=== PATIENT | female | born 1995 | race Caucasian/White ===

== ENCOUNTER 2020-05-05 15:59 | Inpatient (IN) | payer MEDICAID ==
[~2020-05-05] VITALS: Ht 160 cm; Wt 56.0 kg
[~2020-05-05 15:59] MED LIST: DOCU-131 PO; IBUP-1222 PO; PREN1TAB60 PO
[2020-05-05] MEDS ORDERED: BETAMETHASONE 6 MG/ML, 5ML IM ONE (16:33)
[2020-05-05] MEDS ORDERED: MAGNESIUM SULF. PMX 20GM/500ML 500 ML IV ONE (16:33)
[2020-05-05] MEDS: LACTATED RINGERS 1,000 ML IV PRN (16:40)
[2020-05-05] MEDS: BETAMETHASONE 6 MG/ML, 5ML IM SCH (16:44)
[2020-05-05] MEDS: AMPICILLIN 2 GM in SODIUM CHLORIDE 0.9% 100 ML IV SCH ×2 (16:50→22:52)
[2020-05-05] MEDS ORDERED: LACTATED RINGERS 1,000 ML IV PRN (17:00)
[2020-05-05] MEDS: MAGNESIUM SULF. PMX 20GM/500ML 500 ML IV SCH ×2 (17:08→17:26)
[2020-05-05 17:11] LABS: BASOPHILS % (AUTO) 0 % (0-1); EOSINOPHILS % (AUTO) 1 % (1-7); LYMPHOCYTES % (AUTO) 21 % (22-44); MEAN CORPUSCULAR HEMOGLOBIN 32.3 pg (27.0-34.8); MEAN CORPUSCULAR HGB CONC 34.5 g/dL (32.4-35.8); MEAN PLATELET VOLUME 9.3 fL (7.4-10.4); MONOCYTES % (AUTO) 8 % (2-9); NEUTROPHILS % (AUTO) 70 % (42-75); PLATELET COUNT 219 x10^3/uL (130-400); RED BLOOD COUNT 3.86 x10^6/uL (3.82-5.3); RED CELL DISTRIBUTION WIDTH 12.2 % (9.6-15.2)
[2020-05-05 17:16] LABS: MD NO
[2020-05-05 17:22] LABS: ALANINE AMINOTRANSFERASE 18 U/L (12-78); ALBUMIN 2.6 g/dL (3.4-5.0); ANION GAP 8 mmol/L (5-15); CALCIUM 8.5 mg/dL (8.5-10.1); CHLORIDE 110 mmol/L (98-107); CREATININE 0.66 mg/dL (0.55-1.02)
[2020-05-05 17:24] LABS: ALKALINE PHOSPHATASE 144 U/L (45-117); BILIRUBIN,TOTAL 0.2 mg/dL (0.2-1.0); TOTAL PROTEIN 6.5 g/dL (6.4-8.2)
[2020-05-05] MEDS: AZITHROMYCIN 500 MG in SODIUM CHLORIDE 0.9% 250 ML IV SCH (17:28)
[2020-05-05] MEDS ORDERED: ACETAMINOPHEN 325 MG TABLET PO PRN (17:30)
[2020-05-05] MEDS ORDERED: ONDANSETRON 2MG/ML, 2ML IVPush PRN (17:30)
[2020-05-05 17:33] LABS: MICROSCOPIC NOT IND
[2020-05-05] MEDS ORDERED: NEWBORN KIT ONE (17:35)
[2020-05-05] MEDS ORDERED: MAGNESIUM SULFATE PMX 4GM/100M 100 ML IVPB ONE (18:00)
[2020-05-05 19:00] VITALS: BP 106/65
[2020-05-06] MEDS ORDERED: MAGNESIUM SULF. PMX 20GM/500ML 500 ML IV ONE ×2 (02:03→17:36)
[2020-05-06] MEDS: MAGNESIUM SULF. PMX 20GM/500ML 500 ML IV SCH ×2 (02:04→17:39)
[2020-05-06] MEDS: AMPICILLIN 2 GM in SODIUM CHLORIDE 0.9% 100 ML IV SCH ×4 (05:00→23:00)
[2020-05-06] MEDS ORDERED: PRENATAL VIT/IRON/FA 1 EACH TABLET ONE (10:28)
[2020-05-06] MEDS ORDERED: DOCUSATE 100 MG CAPSULE ONE ×2 (10:28→20:51)
[2020-05-06] MEDS: DOCUSATE 50 MG/5 ML, 10ML UDC PO PRN ×2 (10:30→20:54)
[2020-05-06] MEDS: PRENATAL VIT/IRON/FA 1 EACH TABLET PO SCH (10:30)
[2020-05-06] MEDS: LACTATED RINGERS 1,000 ML IV PRN (13:31)
[2020-05-06 13:33] VITALS: BP 110/56
[2020-05-06] MEDS: BETAMETHASONE 6 MG/ML, 5ML IM SCH (16:36)
[2020-05-06] MEDS ORDERED: DIPH,PERTUSS(ACELL),TET VAC/PF NC IM-VACC ONE (17:00)
[2020-05-06] MEDS: AZITHROMYCIN 500 MG in SODIUM CHLORIDE 0.9% 250 ML IV SCH (17:35)
[2020-05-07] MEDS: LACTATED RINGERS 1,000 ML IV PRN ×2 (01:56→06:38)
[2020-05-07] MEDS: AMPICILLIN 2 GM in SODIUM CHLORIDE 0.9% 100 ML IV SCH ×3 (05:00→16:38)
[2020-05-07] MEDS ORDERED: ACETAMINOPHEN 325 MG TABLET ONE (05:19)
[2020-05-07] MEDS ORDERED: DOCUSATE 100 MG CAPSULE ONE ×2 (07:38→21:46)
[2020-05-07] MEDS ORDERED: PRENATAL VIT/IRON/FA 1 EACH TABLET ONE (07:38)
[2020-05-07] MEDS: PRENATAL VIT/IRON/FA 1 EACH TABLET PO SCH (07:40)
[2020-05-07] MEDS: DOCUSATE 50 MG/5 ML, 10ML UDC PO PRN ×2 (07:43→21:50)
[2020-05-07] MEDS ORDERED: MAGNESIUM SULF. PMX 20GM/500ML 500 ML IV ONE (11:05)
[2020-05-07] MEDS: MAGNESIUM SULF. PMX 20GM/500ML 500 ML IV SCH (11:12)
[2020-05-07] MEDS ORDERED: AMOXICILLIN 250 MG CAPSULE ONE (21:45)
[2020-05-07] MEDS: AMOXICILLIN 250 MG CAPSULE PO SCH (21:50)
[2020-05-08] MEDS ORDERED: AMOXICILLIN 250 MG CAPSULE ONE ×3 (06:48→21:53)
[2020-05-08] MEDS: AMOXICILLIN 250 MG CAPSULE PO SCH ×3 (06:50→21:55)
[2020-05-08 07:19] VITALS: BP 102/57
[2020-05-08] MEDS ORDERED: DOCUSATE 100 MG CAPSULE ONE (08:39)
[2020-05-08] MEDS ORDERED: PRENATAL VIT/IRON/FA 1 EACH TABLET ONE (08:39)
[2020-05-08] MEDS: PRENATAL VIT/IRON/FA 1 EACH TABLET PO SCH (08:40)
[2020-05-08] MEDS: DOCUSATE 50 MG/5 ML, 10ML UDC PO PRN (08:41)
[2020-05-09 02:06] LABS: BASOPHILS % (AUTO) 0 % (0-1); EOSINOPHILS % (AUTO) 1 % (1-7); LYMPHOCYTES % (AUTO) 25 % (22-44); MEAN CORPUSCULAR HEMOGLOBIN 32.5 pg (27.0-34.8); MEAN CORPUSCULAR HGB CONC 34.3 g/dL (32.4-35.8); MEAN PLATELET VOLUME 9.6 fL (7.4-10.4); MONOCYTES % (AUTO) 9 % (2-9); NEUTROPHILS % (AUTO) 65 % (42-75); PLATELET COUNT 180 x10^3/uL (130-400); RED BLOOD COUNT 3.37 x10^6/uL (3.82-5.3); RED CELL DISTRIBUTION WIDTH 12.5 % (9.6-15.2)
[2020-05-09 02:10] LABS: MD NO
[2020-05-09] MEDS ORDERED: AMOXICILLIN 250 MG CAPSULE ONE ×4 (05:53→21:54)
[2020-05-09] MEDS: AMOXICILLIN 250 MG CAPSULE PO SCH ×3 (05:55→21:57)
[2020-05-09] MEDS: SODIUM CHLORIDE FLUSH 10ML SYR IVF PRN ×3 (05:55→21:02)
[2020-05-09] MEDS ORDERED: PRENATAL VIT/IRON/FA 1 EACH TABLET ONE ×2 (10:38→21:01)
[2020-05-09] MEDS: PRENATAL VIT/IRON/FA 1 EACH TABLET PO SCH (10:39)
[2020-05-09 20:00] VITALS: BP 112/71
[2020-05-10] MEDS ORDERED: AMOXICILLIN 250 MG CAPSULE ONE ×3 (05:55→21:53)
[2020-05-10] MEDS: SODIUM CHLORIDE FLUSH 10ML SYR IVF PRN ×3 (05:57→21:55)
[2020-05-10] MEDS: AMOXICILLIN 250 MG CAPSULE PO SCH ×3 (05:57→21:55)
[2020-05-10] MEDS ORDERED: PRENATAL VIT/IRON/FA 1 EACH TABLET ONE ×2 (07:50→19:46)
[2020-05-10] MEDS: PRENATAL VIT/IRON/FA 1 EACH TABLET PO SCH ×2 (09:31→19:48)
[2020-05-10] MEDS ORDERED: DOCUSATE 100 MG CAPSULE ONE (19:46)
[2020-05-10 20:18] VITALS: BP 115/71
[2020-05-11] MEDS: AMOXICILLIN 250 MG CAPSULE PO SCH ×3 (06:00→22:09)
[2020-05-11] MEDS: DOCUSATE 50 MG/5 ML, 10ML UDC PO PRN ×2 (06:06→21:21)
[2020-05-11] MEDS ORDERED: AMOXICILLIN 250 MG CAPSULE ONE ×2 (13:06→20:05)
[2020-05-11] MEDS: SODIUM CHLORIDE FLUSH 10ML SYR IVF PRN (13:56)
[2020-05-11] MEDS ORDERED: PRENATAL VIT/IRON/FA 1 EACH TABLET ONE (20:10)
[2020-05-11] MEDS: PRENATAL VIT/IRON/FA 1 EACH TABLET PO SCH (20:10)
[2020-05-11] MEDS ORDERED: DOCUSATE 100 MG CAPSULE ONE (21:19)
[2020-05-12] MEDS ORDERED: AMOXICILLIN 250 MG CAPSULE ONE ×4 (06:18→22:27)
[2020-05-12] MEDS: AMOXICILLIN 250 MG CAPSULE PO SCH ×2 (06:23→14:18)
[2020-05-12] MEDS ORDERED: DOCUSATE 100 MG CAPSULE ONE ×2 (08:44→21:02)
[2020-05-12] MEDS: SODIUM CHLORIDE FLUSH 10ML SYR IVF PRN (08:48)
[2020-05-12] MEDS: DOCUSATE 50 MG/5 ML, 10ML UDC PO PRN ×2 (08:48→21:03)
[2020-05-12] MEDS ORDERED: PRENATAL VIT/IRON/FA 1 EACH TABLET ONE (19:11)
[2020-05-12 21:00] VITALS: BP 110/64
[2020-05-12] MEDS: PRENATAL VIT/IRON/FA 1 EACH TABLET PO SCH (21:00)
[2020-05-13] MEDS ORDERED: DOCUSATE 100 MG CAPSULE ONE (07:50)
[2020-05-13 08:00] VITALS: BP 112/64
[2020-05-13] MEDS: SODIUM CHLORIDE FLUSH 10ML SYR IVF PRN ×2 (08:01→20:36)
[2020-05-13] MEDS: DOCUSATE 50 MG/5 ML, 10ML UDC PO PRN (08:01)
[2020-05-13 17:21] VITALS: BP 118/62
[2020-05-13] MEDS ORDERED: PRENATAL VIT/IRON/FA 1 EACH TABLET ONE (20:34)
[2020-05-13] MEDS: PRENATAL VIT/IRON/FA 1 EACH TABLET PO SCH (20:36)
[2020-05-15] MEDS ORDERED: DOCUSATE 100 MG CAPSULE ONE (10:35)
[2020-05-15] MEDS: SODIUM CHLORIDE FLUSH 10ML SYR IVF PRN (10:36)
[2020-05-15 10:49] VITALS: BP 109/55
[2020-05-15 20:18] VITALS: BP 117/59
[2020-05-16] MEDS: PRENATAL VIT/IRON/FA 1 EACH TABLET PO SCH (09:00)
[2020-05-16] MEDS ORDERED: PRENATAL VIT/IRON/FA 1 EACH TABLET ONE (09:15)
[2020-05-16] MEDS ORDERED: DOCUSATE 100 MG CAPSULE ONE (09:15)
[2020-05-16] MEDS: SODIUM CHLORIDE FLUSH 10ML SYR IVF PRN (09:18)
[2020-05-16] MEDS: DOCUSATE 50 MG/5 ML, 10ML UDC PO PRN (09:22)
[2020-05-16] MEDS ORDERED: OXYTOCIN 30U/ 0.9% NaCL 500ML 500 ML IV ONE (18:30)
[2020-05-16] MEDS ORDERED: FENTANYL PF 100 MCG/2ML IVPush PRN (18:30)
[2020-05-16] MEDS ORDERED: D5%-LACTATED RINGERS 1,000 ML IV SCH (18:30)
[2020-05-16] MEDS ORDERED: METOCLOPRAMIDE 5 MG/ML, 2ML IVPush PRN (18:30)
[2020-05-16] MEDS ORDERED: SODIUM CITRATE/CITRIC ACID 30 ML UDC PO PRN (18:30)
[2020-05-16] MEDS ORDERED: FENTANYL PF 100 MCG/2ML IV PRN (18:30)
[2020-05-16] MEDS ORDERED: TERBUTALINE 1 MG/ML, 1ML IVPush PRN (18:30)
[2020-05-16] MEDS ORDERED: TERBUTALINE 1 MG/ML, 1ML SQ PRN (18:30)
[2020-05-16] MEDS ORDERED: LACTATED RINGERS 1,000 ML IV SCH (18:30)
[2020-05-16] MEDS ORDERED: OXYTOCIN 30U/ 0.9% NaCL 500ML 500 ML ONE (18:59)
[2020-05-16] MEDS ORDERED: LIDOCAINE 1%, 20ML ONE (19:00)
[2020-05-16] MEDS ORDERED: MISOPROSTOL 200 MCG TABLET ONE (19:00)
[2020-05-16] MEDS ORDERED: FENTANYL/BUPIV./NS/PF 250 ML EPIDCONT ONE (19:33)
[2020-05-16 19:53] LABS: BASOPHILS % (AUTO) 0 % (0-1); EOSINOPHILS % (AUTO) 1 % (1-7); LYMPHOCYTES % (AUTO) 17 % (22-44); MEAN CORPUSCULAR HEMOGLOBIN 32.1 pg (27.0-34.8); MEAN CORPUSCULAR HGB CONC 33.9 g/dL (32.4-35.8); MEAN PLATELET VOLUME 10.1 fL (7.4-10.4); MONOCYTES % (AUTO) 7 % (2-9); NEUTROPHILS % (AUTO) 76 % (42-75); PLATELET COUNT 238 x10^3/uL (130-400); RED BLOOD COUNT 4.25 x10^6/uL (3.82-5.3); RED CELL DISTRIBUTION WIDTH 12.8 % (9.6-15.2)
[2020-05-16 19:54] LABS: MD NO
[2020-05-16] MEDS ORDERED: BUPIVACAINE 0.25% ONE (20:03)
[2020-05-16] MEDS ORDERED: LACTATED RINGERS 1,000 ML IVBOLUS PRN (20:30)
[2020-05-16] MEDS ORDERED: EPHEDRINE 50 MG/ML, 1ML IVPush PRN (20:30)
[2020-05-16] MEDS: LACTATED RINGERS 1,000 ML IV SCH (20:30)
[2020-05-16] MEDS ORDERED: FENTANYL/BUPIV./NS/PF 250 ML EPIDCONT SCH (20:30)
[2020-05-16] MEDS ORDERED: IBUPROFEN 600 MG TABLET PO PRN (22:00)
[2020-05-16] MEDS ORDERED: SIMETHICONE 80 MG CHEW TAB PO PRN (22:00)
[2020-05-16] MEDS ORDERED: METHYLERGONOVINE 0.2 MG/ML IM PRN (22:00)
[2020-05-16] MEDS ORDERED: OXYcodone/APAP 5/325MG TABLET PO PRN ×2 (22:00)
[2020-05-16] MEDS: OXYTOCIN 30U/ 0.9% NaCL 500ML 500 ML IV SCH (22:00)
[2020-05-16] MEDS ORDERED: ACETAMINOPHEN 325 MG TABLET PO PRN (22:00)
[2020-05-16] MEDS ORDERED: MISOPROSTOL 200 MCG TABLET PR PRN (22:00)
[2020-05-16] MEDS ORDERED: ONDANSETRON 2MG/ML, 2ML IV PRN (22:00)
[2020-05-16] MEDS ORDERED: ACETAMINOPHEN 325 MG TABLET ONE (23:01)
[2020-05-16] MEDS: ACETAMINOPHEN 325 MG TABLET PO PRN (23:05)
[2020-05-17 00:10] VITALS: BP 109/73
[2020-05-17 04:11] VITALS: BP 95/59
[2020-05-17] MEDS: LACTATED RINGERS 1,000 ML IV SCH ×3 (04:14→20:30)
[2020-05-17 06:34] LABS: MEAN CORPUSCULAR HEMOGLOBIN 31.9 pg (27.0-34.8); MEAN PLATELET VOLUME 9.3 fL (7.4-10.4); PLATELET COUNT 192 x10^3/uL (130-400); RED BLOOD COUNT 3.72 x10^6/uL (3.82-5.3); RED CELL DISTRIBUTION WIDTH 13.1 % (9.6-15.2)
[2020-05-17 06:48] LABS: MD YES
[2020-05-17 07:15] VITALS: BP 90/54
[2020-05-17 07:20] LABS: <RBC MORPHOLOGY> NORMAL; BAND#(MANUAL) 1.63 x10^3/uL; BANDS%(MANUAL) 6 % (0-7); LYMPH#(MANUAL) 0.54 x10^3/uL (1-3.4); LYMPHS% (MANUAL) 2 % (22-44); MONOS#(MANUAL) 2.18 x10^3/uL (0.3-2.7); MONOS% (MANUAL) 8 % (2-9); SEG#(MANUAL) 22.85 x10^3/uL (1.8-6.8); SEGS% (MANUAL) 84 % (42-75)
[2020-05-17] MEDS: ACETAMINOPHEN 325 MG TABLET PO PRN (07:20)
[2020-05-17] MEDS: DOCUSATE 100 MG CAPSULE PO PRN ×2 (07:20→19:57)
[2020-05-17 07:21] LABS: <PLATELET ESTIMATE> ADEQUATE; <PLT MORPHOLOGY> NORMAL PLT MORPH
[2020-05-17] MEDS: PRENATAL VIT/IRON/FA 1 EACH TABLET PO SCH (07:21)
[2020-05-17] MEDS: OXYTOCIN 30U/ 0.9% NaCL 500ML 500 ML IV SCH ×2 (08:00→18:00)
[2020-05-17] MEDS ORDERED: PRENATAL VIT/IRON/FA 1 EACH TABLET HOMEMEDPO SCH (09:00)
[2020-05-17 12:52] VITALS: BP 103/63
[2020-05-17 16:07] VITALS: BP 104/68
[2020-05-17 19:30] VITALS: BP 102/62
[2020-05-18] MEDS: OXYTOCIN 30U/ 0.9% NaCL 500ML 500 ML IV SCH (04:00)
[2020-05-18] MEDS: ACETAMINOPHEN 325 MG TABLET PO PRN (04:20)
[2020-05-18] MEDS: LACTATED RINGERS 1,000 ML IV SCH ×2 (04:23→12:30)
[2020-05-18 05:46] LABS: BASOPHILS % (AUTO) 1 % (0-1); EOSINOPHILS % (AUTO) 1 % (1-7); LYMPHOCYTES % (AUTO) 17 % (22-44); MD NO; MEAN CORPUSCULAR HEMOGLOBIN 32.6 pg (27.0-34.8); MEAN CORPUSCULAR HGB CONC 33.7 g/dL (32.4-35.8); MEAN PLATELET VOLUME 9.4 fL (7.4-10.4); MONOCYTES % (AUTO) 5 % (2-9); NEUTROPHILS % (AUTO) 77 % (42-75); PLATELET COUNT 205 x10^3/uL (130-400); RED BLOOD COUNT 3.39 x10^6/uL (3.82-5.3); RED CELL DISTRIBUTION WIDTH 13.3 % (9.6-15.2)
[2020-05-18 08:49] VITALS: BP 123/70
[2020-05-18] MEDS: DOCUSATE 100 MG CAPSULE PO PRN (08:49)
[2020-05-18] MEDS: PRENATAL VIT/IRON/FA 1 EACH TABLET PO SCH (08:49)
[2020-05-18] MEDS ORDERED: IBUP-1222 PO (11:36)
== END 2020-05-18 13:14 | disposition home or self-care (01) | DRG 807 ==
LOC: LDOP 15:59 → LDIP 16:35 → 2NW 05-17 00:05
PROVIDERS: ADMIT Obstetrics & Gynecology; ATTEND Obstetrics & Gynecology
PROC: 10E0XZZ Delivery of Products of Conception, External Approach (ICD-10-PCS; principal; 2020-05-16)
PROC: 3E0R3BZ Introduction of Anesthetic Agent into Spinal Canal, Percutaneous Approach (ICD-10-PCS; 2020-05-16)
PROC: 00HU33Z Insertion of Infusion Device into Spinal Canal, Percutaneous Approach (ICD-10-PCS; 2020-05-16)
DX: O42.913 Preterm premature rupture of membranes, unspecified as to length of time between rupture and onset of labor, third trimester (principal); Z37.0 Single live birth; Z3A.31 31 weeks gestation of pregnancy; Z20.822 Contact with and (suspected) exposure to COVID-19
CPT/HCPCS: 36415; J3490; 76815; 80053; 81003; 83735; 84112; 85025; 86592; 86850; 86900; 87081; 87086; 87635; 88307; 90715; G0378; J0290; J0456; J0702; J2405; J2590; J3010; J3475; J7050; J7120